=== PATIENT | male | born 1940 | race Caucasian/White ===

== ENCOUNTER → 2018-09-13 | Outpatient (CLI) | payer MEDICARE ==
[~2018-09-13] MED LIST: AMIO400T4 PO; CALC600T12 PO; CRILL OIL PO; METH1500 PO; METO-391 PO; MULT-40 PO; WARF-57 PO
== END | disposition home or self-care (01) ==
LOC: SHCH 09:33
PROVIDERS: ATTEND Internal Medicine Cardiovascular Disease
DX: I51.7 Cardiomegaly (principal); I70.0 Atherosclerosis of aorta; I48.2 Chronic atrial fibrillation; Z95.0 Presence of cardiac pacemaker
CPT/HCPCS: 93306